=== PATIENT | female | born 1990 | race Caucasian/White ===

== ENCOUNTER 2020-02-16 14:32 | Emergency (ER) | payer OTHER, SELFPAY ==
[2020-02-16 14:49] VITALS: BP 146/106; PULSE 72; RESP 20; TEMP 36.9; O2SAT 98; BMI 54.1
--- NOTE | 2020-02-16 15:10 | HMH.EDUTC ---
[facility] [place] Disposition Clinical Impression: Exposure to COVID-19 virus, Bronchitis Disposition: Home, Self-Care Condition on Discharge: Good Instructions: Preventing the Spread of Coronavirus Discharge Instructions Additional Instructions: Drink plenty of fluids. The results of your COVID-19 test should be back within 24 to 48 hours. Take tylenol for pain or fever. Take the medications as directed. Follow up with your regular doctor. GO TO THE ER FOR ANY WORSENING SYMPTOMS Prescriptions: Azithromycin [Z-Timmy 250mg Tab*] 250 mg PO UD DOSE PK #6 tab Transmission Status: Received by [facility] Referrals: Leonidas Clark MD [Primary Care Provider] - Forms: Work/School Release Time of Disposition: 15:15 Medical Decision Making - Medical Records Medical records reviewed: No: I reviewed the patient's medical records. - Conner Inquiry Pt receiving controlled substance: No Vital Signs: 02/16/20 14:49 02/16/20 15:17 Temperature 98.5 F 98.5 F Temperature Source Oral Pulse Rate 72 Pulse Rate [Left Brachial] 72 Respiratory Rate 20 20 Blood Pressure 146/106 H Blood Pressure [Left Arm] 146/106 H Blood Pressure Mean [Left Arm] 119 Blood Pressure Source [Left Arm] Automatic Cuff Blood Pressure Position [Left Arm] Sitting 02 Sat by Pulse Oximetry 98 Oxygen Delivery Method Room Air Orders (Tests/Meds): ORDERS Category Date Time Status SARS-CoV-2, LY Stat Lab 02/16/20 15:16 Received [facility] [place] HPI - General Stated complaint: wants covid test Time Seen by Provider: 02/16/20 15:10 Mode of Arrival: Ambulatory Source of Information: Patient Limitations: No Limitations Description of Symptoms (Recalled from Triage Doc. by RN): PATIENT C/O DRY COUGH AND FEELING VERY TIRED SINCE YESTERDAY. HER MOTHER TESTED POSITIVE FOR COVID TODAY. PATIENT HAS BEEN IN CLOSE (WITHIN TOUCHING DISTANCE) CONTACT WITH HER MOTHER ON A DAILY BASIS. PATIENT DENIES FEVER AT THIS TIME HEENT Symptoms (Recalled from RN notes): No Resp Symptoms (Recalled from RN notes): Yes Skin Symptoms (Recalled from RN notes): No MS Symptoms (Recalled from RN notes): No Functional Status (Recalled from RN notes): WNL - History of Present Illness Provider Complaint: She states that her mother was diagnosed with COVID-19 on Demar. She has been around her mother frequently. Over the past 2 days she has been having a dry cough. She denies any fever or chilling or sore throat. She denies any GI symptoms. She does not have a history of asthma or diabetes. - Related Data Home Medications Medication Instructions Recorded Confirmed Escitalopram Oxalate [Lexapro] 20 mg PO DAILY 02/16/20 02/16/20 Previous Rx's Medication Instructions Recorded Azithromycin [Z-Timmy 250mg Tab*] 250 mg PO UD DOSE PK #6 tab 02/16/20 Allergies Allergy/AdvReac Type Severity Reaction Status Date / Time No Known Allergies Allergy Verified 06/04/18 14:49 - Worker's Comp Is this a Worker's Comp case?: No [facility] History - Hepatitis A Screen Drug use history?: No High risk sexual behaviors?: No History of sexually transmitted infection?: No Currently employed?: No Childcare worker?: No Do you have indoor plumbing?: Yes Do you have electricity?: Yes Attestation statement:: This patient has been screened for Hepatitis A risk factors. I have reviewed the patient's past medical history: Yes Medical History: Denies:: Anxiety, Cancer, Depression, Diabetes Mellitus Type 1, Diabetes Mellitus Type 2, Hyperlipidemia, Hypertension Laterality Cases: Bilateral: Tonsillectomy Other Surgeries: Yes: Cholecystectomy Amputation: No Fractures: No - Social History Smoking Status: Never smoker Alcohol Intake: never Substance Use Type: denies use Occupational Status: other - Psychiatric History Pschychiatric History:: Denies:: Anxiety, Depression Family Hx:: Cancer, Diabetes, Heart Attack, Hypertension, Hyperlipidemia ROS Obtained: Yes Al
[2020-02-16 15:17] VITALS: BP 146/106; PULSE 72; RESP 20; TEMP 36.9; O2SAT 98
[2020-02-18 13:31] LABS: Covid-19 Nasal PCR Sendout Lex Not Detected
== END 2020-02-16 15:20 | disposition home or self-care (01) ==
PROVIDERS: Emergency Provider Nurse Practitioner Family; PCP Internal Medicine Adolescent Medicine
DX: Z20.828 Contact with and (suspected) exposure to other viral communicable diseases (principal); J20.9 Acute bronchitis, unspecified
CPT/HCPCS: 99201; U0004

== ENCOUNTER → 2020-12-10 15:21 | Outpatient (CLI) | payer OTHER, SELFPAY ==
[2020-12-10 15:53] LABS: Basophils % 0.4 % (0.1-2.0); Eosinophils % 0.3 % (0.1-12.0); Hematocrit 41.1 % (37.0-47.0); Hemoglobin 13.3 g/dL (12.2-16.2); Lymphocytes # 2.1 K/mm3 (0.7-4.5); Lymphocytes % 24.1 % (10-50); Mean Corpuscular HGB Conc 32.2 g/dL (31.8-35.4); Mean Corpuscular Hemoglobin 26.8 pg (27.0-31.2); Mean Corpuscular Volume 83.1 fl (81-99); Mean Platelet Volume 8.2 fl (7.4-10.4); Monocytes # 0.4 K/mm3 (0.1-1.0); Monocytes % 4.1 % (1.7-9.3); Neutrophils # 6.3 K/mm3 (1.8-7.8); Platelet Count 294 K/mm3 (142-424); Red Blood Count 4.95 M/mm3 (4.20-5.40); Red Cell Distribution Width 13.7 % (11.5-17.5); White Blood Count 8.8 K/mm3 (4.8-10.8)
[2020-12-10 16:06] LABS: HCG Qualitative, Serum Negative (Negative)
[2020-12-10 16:09] LABS: Chloride 102 mmol/L (98-107); Potassium 3.7 mmoL/L (3.5-5.1); Sodium 141 mmol/L (136-145)
[2020-12-10 16:12] LABS: Anion Gap 13.7 mEq/L (5-15); Blood Urea Nitrogen 13 mg/dl (7-17); Calcium 9.5 mg/dl (8.4-10.2); Carbon Dioxide 29 mmol/L (22.0-30.0); Estimated Glomerular Filt Rate 98 ml/min (>60); GFR (African American) 119 ML/MIN (>60); Glucose 112 mg/dl (74-100)
[2020-12-10 17:06] LABS: Coronavirus 19 IgG Antibody Negative (Negative); Coronavirus 19 IgM Antibody Negative (Negative)
== END ==
PROVIDERS: Visit Provider Nurse Practitioner Obstetrics & Gynecology
DX: Z01.818 Encounter for other preprocedural examination (principal); Z11.52 Encounter for screening for COVID-19; N83.209 Unspecified ovarian cyst, unspecified side; Z30.09 Encounter for other general counseling and advice on contraception
CPT/HCPCS: 36415; 80048; 84703; 85025; 86328

== ENCOUNTER 2020-12-13 06:07 | Day surgery (SDC) | payer OTHER, SELFPAY ==
[2020-12-08 13:24] VITALS: BMI 52.2
[2020-12-13] VITALS (12 sets, daily range): BP systolic 121–151; BP diastolic 73–90; PULSE 57–83; RESP 12–18; TEMP 36.3–38; O2SAT 94–98
--- NOTE | 2020-12-13 06:56 | P.PN_ITS ---
[facility] Anesthesia Checklist - Structural Data Admitted From: Home Planned Operative Procedure/s: lap bso Consent for Planned Operative Procedure(s) Verified: Yes - Additional verifications Anesthesia Reactions: No Hx Blood Transfusions: No Blood Transfusion Reaction: No - Airway Assessment C-Spine Mobility Assessed: Yes TMJ Mobility Assessed: Yes Dentition: Good Dentition - Neurological Assessment Level of Consciousness: Awake, Alert, Appropriate - Anesthesia Plan Anesthesia Risk discussed: Yes Anesthesia Plan: Verified ASA Class: III Anesthesia Type: General [facility] History I have reviewed the patient's past medical history: Yes Medical History: Denies:: Anxiety, Cancer, Depression, Diabetes Mellitus Type 1, Diabetes Mellitus Type 2, Hyperlipidemia, Hypertension, Internal Pacemaker, MRSA, Seizures *Have you ever received a pneumonia vaccine?: No *Have you received a flu vaccine this season?: No Other Medical History: Denies: Blood Transfusion Reaction Anesthesia experience/problems:: none Laterality Cases: Bilateral: Tonsillectomy Other Surgeries: Yes: Cholecystectomy. No: Pacemaker Amputation: No Fractures: No - *Social History Last grade of school completed: Some college Smoking Status: Never smoker Alcohol Intake: never Substance Use Type: denies use *Occupational Status:: other Housing: house Household Members: spouse *Travel in the last 8 weeks: None - Psychiatric History Pschychiatric History:: Denies:: Anxiety, Depression Family Hx:: Cancer, Diabetes, Heart Attack, Hypertension, Hyperlipidemia
--- NOTE | 2020-12-13 08:21 | HMH.ANESI ---
[facility] Anesthesia Record Part I Intake, IV Amount: 1,000 Estimated blood loss (mL): 0 Urine output (mL): 0 Blood Pressure: 140/90 SaO2: 96 Pulse Rate: 79 Respiratory Rate: 12 Temperature: 97.9 F Patient is:: Awake, Stable Stable to PACU at:: 08:15
--- NOTE | 2020-12-13 08:43 | HMH.OPNOTE ---
Date of procedure: 12/13/20 Pre-op Diagnosis:: Desire for sterilization Post-op Diagnosis:: Desire for sterilization Procedure performed:: Laparoscopic bilateral salpingectomy Surgeon:: Nik Boyer MD BANK CREDIT CARD COLLECTION CLERK:: Frank Farnsworth Anesthesia: GETA Estimated blood loss (mL): 25 Clinical Note:: She is a 30-year-old lady who expressed desire for sterilization. The risks and benefits as well as irreversibility of bilateral salpingectomy were discussed with the patient prior to surgery. Operative findings:: She had a normal-appearing anteverted uterus. The tubes and ovaries appeared normal. The pelvis appeared normal. The upper abdomen appeared normal. Operative note:: She was taken to the operating room where general anesthesia was found be adequate. She was prepped and draped in normal sterile fashion in the semilithotomy position. A weighted speculum was placed in the vagina and the anterior lip of the cervix was grasped with a tenaculum. I then inserted a Leesa uterine manipulator into the cervical os. The balloon was then insufflated. I changed gloves and injected 10 cc of 0.5% ropivacaine around her umbilicus and made a small incision within the umbilicus. I inserted a Veress needle into the abdominal cavity. The peritoneal cavity was then insufflated with carbon dioxide gas to a pressure of 20 mmHg. I then inserted a 5 millimeter trocar under direct vision. I injected through and through the pubic hairline, made a small incision here and inserted an 8 mm trocar under direct vision. I identified the inferior epigastric artery on the left side, went lateral to these and injected through and through. I then placed a 5 mm trocar here under direct vision. The pelvis and upper abdomen were then inspected and the findings were as previously dictated. I grasped the right tube at the cornua and using harmonic scalpel on coagulation mode I cut through the tube. I then grasped the distal tube and using harmonic scalpel cut along the mesosalpinx. The tube was removed through 8 mm trocar site. This was similarly performed on the patient's left side. I then injected 30 cc of 0.5% ropivacaine into the pelvis. After assuring hemostasis the gas was let out of the abdomen and hemostasis was once again assured. The abdomen was then reinsufflated. The secondary trochars were removed under direct vision. The gas was let out her abdomen. The primary trocar was then removed. The 8 mm trocar site was closed deeply with 2-0 Vicryl suture followed by subcuticular 4-0 Monocryl suture. The 5 mm trocar sites were closed with subcuticular 4-0 Monocryl. Sterile dressings were applied. The patient tolerated the procedure well and was taken to the recovery room in excellent condition. All sponge instrument and needle counts were correct. The estimated blood loss was less than 25 cc. Condition: stable Disposition: PACU Specimens:: Bilateral fallopian tubes Complications:: None
--- NOTE | 2020-12-14 06:57 | HMH.ANESII ---
[facility] Anesthesia Record Part II Discharge Time: 08:45 Destination: Surgical Day Care (OP Surgery) PACU nurse assessment reviewed?: Yes Patient Condition:: Good Anesthesia Complications:: None Swallowing reflex intact?: Yes Cyanosis?: No Blood Pressure: 141/87 Pulse Rate: 71 Temperature: 98.7 F Mental Status: Alert & Oriented Pain level:: 0 Nausea and/or vomitting:: None Intake, IV Amount: 500
[2020-12-14 06:58] VITALS: BP 141/87; PULSE 71; TEMP 37.1
== END 2020-12-13 09:50 | disposition home or self-care (01) ==
LOC: OR 06:09
PROVIDERS: PCP Internal Medicine Adolescent Medicine; Visit Provider Nurse Practitioner Obstetrics & Gynecology
PROC: (CPT 58661; principal; 2020-12-13 07:30)
DX: Z30.2 Encounter for sterilization (principal); Z79.899 Other long term (current) drug therapy; F32.9 Major depressive disorder, single episode, unspecified
CPT/HCPCS: 58661; 96374

== ENCOUNTER 2021-03-11 17:58 | Emergency (ER) | payer OTHER, SELFPAY ==
[2021-03-11 17:59] VITALS: BP 175/80; PULSE 92; RESP 16; O2SAT 100; BMI 51.7
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
[2021-03-11 18:53] VITALS: BP 164/74; PULSE 90; RESP 16; TEMP 36.8; O2SAT 98
== END 2021-03-11 18:53 | disposition home or self-care (01) ==
PROVIDERS: Emergency Provider Nurse Practitioner; PCP Internal Medicine Adolescent Medicine
DX: S50.11XA Contusion of right forearm, initial encounter (principal); W20.8XXA Other cause of strike by thrown, projected or falling object, initial encounter; Y92.89 Other specified places as the place of occurrence of the external cause
CPT/HCPCS: 73090; 99202; G0463

== ENCOUNTER → 2021-03-23 17:13 | Outpatient (CLI) | payer OTHER, SELFPAY ==
[2021-03-25 22:37] LABS: Neisseria gonorrhoeae, NAA Negative (Negative)
== END ==
PROVIDERS: Visit Provider Nurse Practitioner Obstetrics & Gynecology
DX: R10.2 Pelvic and perineal pain (principal); Z72.51 High risk heterosexual behavior; R82.998 Other abnormal findings in urine
CPT/HCPCS: 87086; 87088; 87186; 87491; 87591

== ENCOUNTER 2021-04-26 20:47 | Emergency (ER) | payer OTHER, SELFPAY ==
[2021-04-26 21:47] VITALS: BP 138/92; PULSE 96; RESP 21; TEMP 37.1; O2SAT 99; BMI 52.7
[2021-04-26 21:50] VITALS: BP 138/92; PULSE 96; RESP 21; TEMP 37.1
[2021-04-26 21:57] LABS: UTC Strep Screen (Rapid) Negative (Negative)
--- NOTE | 2021-04-26 22:01 | HMH.EDUTC ---
[facility] [place] Impression: Pharyngitis Qualifiers: Pharyngitis/tonsillitis etiology: unspecified etiology Qualified Code(s): J02.9 - Acute pharyngitis, unspecified Disposition: Home, Self-Care Condition on Discharge: Good Instructions: Sore Throat, DI for Pharyngitis/Tonsillopharyngitis -- Adult, DI for COVID-19 (Suspected or Confirmed ), Preventing the Spread of Coronavirus Discharge Instructions Additional Instructions: Drink plenty of fluids. Take tylenol or ibuprofen for pain or fever. Take the medications as directed. Follow up with your regular doctor. GO TO THE ER FOR ANY WORSENING SYMPTOMS Quarantine until you know the results of your covid-19 test. If it is positive, the health department should call you and give you further instructions about your length of Quarantine and other things. Notify your school or workplace of your results and follow their instructions regarding return to work/school. Prescriptions: Brompheniramine/Pseudoephed/Dm [Bromfed Dm Cough Syrup] 5 ml PO Q6HP PRN #240 ml PRN Reason: Cough Transmission Status: Received by [facility] predniSONE [Deltasone 10mg tablet] 10 mg PO BID 3 Days #6 tab Transmission Status: Received by [facility] Azithromycin [Z-Timmy 250mg Tab*] 250 mg PO UD DOSE PK #6 tab Transmission Status: Received by [facility] Referrals: Leonidas Clark MD [Primary Care Provider] - Forms: Work/School Release Time of Disposition: 22:12 Medical Decision Making - Medical Records Medical records reviewed: No: I reviewed the patient's medical records. - Conner Inquiry Pt receiving controlled substance: No Vital Signs: 04/26/21 21:47 04/26/21 21:50 Temperature 98.7 F 98.7 F Temperature Source Oral Pulse Rate 96 H Pulse Rate [Left] 96 H Respiratory Rate 21 21 Blood Pressure 138/92 H Blood Pressure [Right Arm] 138/92 H Blood Pressure Mean [Right Arm] 107 02 Sat by Pulse Oximetry 99 Oxygen Delivery Method Room Air - Lab Data Lab results reviewed: Yes: I reviewed the patient's lab results. Lab Results 04/26/21 21:50: Strep Scn Rapid Clinic Negative Orders (Tests/Meds): ORDERS Category Date Time Status Covid-19 Nasal PCR ([facility]) Routine Lab 04/26/21 21:45 Received Strep Screen Confirmation Stat Micro 04/26/21 21:50 Received [facility] UTC HPI - General Stated complaint: SORE THROAT Time Seen by Provider: 04/26/21 22:01 Mode of Arrival: Ambulatory Source of Information: Patient Limitations: No Limitations Description of Symptoms (Recalled from Triage Doc. by RN): pt c/o a sore throat x3 days. HEENT Symptoms (Recalled from RN notes): Yes (sore throat) Resp Symptoms (Recalled from RN notes): No Skin Symptoms (Recalled from RN notes): No MS Symptoms (Recalled from RN notes): No Functional Status (Recalled from RN notes): na - History of Present Illness Provider Complaint: She states that she has had a sore throat for the past 2 days. She states that it has been very sore. She has a history of getting strep throat. - Related Data Home Medications Medication Instructions Recorded Confirmed levonorgestrel 20 mcg/24 hours (6 1 insert INTRAUTERI each 03/23/21 03/23/21 yrs) 52 mg intrauterine device propranolol 40 mg tablet 40 mg PO tab 03/23/21 03/23/21 vortioxetine 20 mg tablet 20 mg PO tab 03/23/21 03/23/21 Previous Rx's Medication Instructions Recorded metronidazole 500 mg tablet 500 mg PO BID 7 Days #14 tab 03/23/21 Azithromycin [Z-Timmy 250mg Tab*] 250 mg PO UD DOSE PK #6 tab 04/26/21 Brompheniramine/Pseudoephed/Dm 5 ml PO Q6HP PRN #240 ml 04/26/21 [Bromfed Dm Cough Syrup] predniSONE [Deltasone 10mg tablet] 10 mg PO BID 3 Days #6 tab 04/26/21 Allergies Allergy/AdvReac Type Severity Reaction Status Date / Time No Known Allergies Allergy Verified 03/23/21 11:33 - Worker's Comp Is this a Worker's Comp case?: No [facility] History - Hepatitis A Screen Drug use his
== END 2021-04-26 22:17 | disposition home or self-care (01) ==
PROVIDERS: Emergency Provider Nurse Practitioner Family; PCP Internal Medicine Adolescent Medicine
DX: J02.9 Acute pharyngitis, unspecified (principal); F41.8 Other specified anxiety disorders
CPT/HCPCS: 87880; 99203; G0463; U0003

== ENCOUNTER 2021-07-05 07:56 | Outpatient (CLI) | payer OTHER, SELFPAY ==
[2021-07-05] VITALS (7 sets, daily range): BP systolic 151–168; BP diastolic 90–108; PULSE 70–84; RESP 16–18; TEMP 36.7; O2SAT 97–99
== END 2021-07-05 11:47 ==
PROVIDERS: PCP Internal Medicine Adolescent Medicine; Visit Provider Nurse Practitioner Family
DX: U07.1 COVID-19 (principal); Z23 Encounter for immunization
CPT/HCPCS: 96365

== ENCOUNTER → 2023-03-07 07:42 | Outpatient (CLI) | payer OTHER, SELFPAY | PROVIDERS: PCP Internal Medicine Adolescent Medicine; Visit Provider Nurse Practitioner Family | DX: Z01.818 Encounter for other preprocedural examination (principal); E66.9 Obesity, unspecified; Z68.43 Body mass index [BMI] 50.0-59.9, adult; R06.09 Other forms of dyspnea | CPT/HCPCS: 94060; 94726; 94729 ==

== ENCOUNTER → 2023-03-14 14:27 | Outpatient (CLI) | payer OTHER, SELFPAY ==
--- NOTE | 2023-03-14 14:47 | CA_ITS ---
APPROVED REPORT EXAM: Comprehensive 2D, Doppler, and color-flow Echocardiogram Brake Adjuster: Delma Salas CRT Ht: 5 ft 5 in Wt: 325lbs BSA: 2.43 BP: 156/96 mmHg Indications: Obesity, Hypertension/HDD, Pre-Op bariatric 2D Dimensions LVOT 1.83 cm (M/F) 1.5-2.5 LA Volume 38.00 mL LA Volume Index 15.64 mL/m2 (M/F) 16-34 M-Mode Dimensions RVDd 3.15 cm (0.9-2.6) LA Diam 3.85 cm (1.9-4.0) LVDd 5.05 cm (3.5-5.7) Ao Diam 3.53 cm (2.0-3.7) LVDs 3.57 cm (3.5-5.7) IVSd 1.18 cm (0.6-1.1) PWd 0.84 cm (0.6-1.1) EF (Teich) 56.00% FS 29.30% EDV (Teich) 121.00 mL TAPSE 2.44 (<1.7) ESV (Teich) 53.30 mL LV Diastology E Decel Time 200.00 (160-240 msec) E/A Ratio 1.2 MED E' 8.40 (< 7 cm/sec) MED A' 6.90 cm/s E'/MED E' Ratio 12.54 (>14) LAT E' 12.50 (<10 cm/sec) LAT A' 9.60 cm/s E/LAT E' Ratio 8.42 (>14) Aortic Valve AO Peak GR. 12.00 mmHg Mitral Valve MV E Max Akshat. 105.00 (40-130 cm/s) MV A Velocity 85.00 (40-130 cm/s) E/A Ratio 1.23 MV Decel. Time 200.00 (160-240 ms) MV PHT 59.00 ms Pulmonary Valve PV Peak Velocity 98.00 (50-150 cm/s) Tricuspid Valve TR P. Velocity 122.00 cm/s RAP Estimate 10.00 mmHg RVSP 16.00 mmHg Left Ventricle The left ventricle is normal size. The left ventricular systolic function is normal. The left ventricular ejection fraction is within the normal range. There is normal left ventricular wall thickness. There is normal LV segmental wall motion. The left ventricular diastolic function is normal. LVEF is 65%. Right Ventricle The right ventricle is normal size. The right ventricular systolic function is normal. Atria The left atrium size is normal. The right atrium size is normal. There is no Doppler evidence of interatrial shunt. Aortic Valve The aortic valve is normal in structure. There is no aortic valvular stenosis. No aortic regurgitation is present. Mitral Valve The mitral valve is normal in structure. There is trace mitral valve regurgitation noted. Tricuspid Valve The tricuspid valve leaflets are thin and pliable. Trace tricuspid regurgitation. RVSP is normal. Pulmonic Valve The pulmonary valve is normal in structure. Trace pulmonic regurgitation. Great Vessels The aortic root is normal in size. Pericardium There is no pericardial effusion. Other Information Study Quality: Adequate Conclusion Normal biventricular systolic function. No significant valvular disease. Electronically signed by : Tricia Hall, 03/14/2023 17:17:23
[2023-03-16 11:46] LABS: HSV 2 IgG, Type Spec <0.91 index (0.00-0.90)
== END ==
PROVIDERS: Nurse Practitioner Obstetrics & Gynecology; PCP Internal Medicine Adolescent Medicine; Visit Provider Nurse Practitioner
DX: N89.8 Other specified noninflammatory disorders of vagina; I10 Essential (primary) hypertension; Z01.818 Encounter for other preprocedural examination
CPT/HCPCS: 36415; 86695; 86790; 93306

== ENCOUNTER 2023-03-17 11:02 | Emergency (ER) | payer OTHER, SELFPAY ==
[2023-03-17 11:02] VITALS: BP 154/90; PULSE 67; RESP 18; TEMP 36.7; O2SAT 100
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
--- NOTE | 2023-03-17 11:21 | PC.NURSE ---
pt refused c collar
[2023-03-17 11:28] LABS: Basophils # 0.1 K/mm3 (0-0.2); Basophils % 0.5 % (0.1-2.0); Eosinophils # 0.1 K/mm3 (0.0-0.4); Eosinophils % 0.6 % (0.1-12.0); Hematocrit 40.5 % (37.0-47.0); Hemoglobin 12.9 g/dL (12.2-16.2); Lymphocytes # 1.9 K/mm3 (0.7-4.5); Lymphocytes % 16.3 % (10-50); Mean Corpuscular HGB Conc 31.9 g/dL (31.8-35.4); Mean Corpuscular Hemoglobin 27.2 pg (27.0-31.2); Mean Corpuscular Volume 85.4 fl (81-99); Mean Platelet Volume 8.5 fl (7.4-10.4); Monocytes # 0.4 K/mm3 (0.1-1.0); Monocytes % 3.9 % (1.7-9.3); Neutrophils % 78.7 % (37.0-80.0); Platelet Count 286 K/mm3 (142-424); Red Blood Count 4.74 M/mm3 (4.20-5.40); Red Cell Distribution Width 14.2 % (11.5-17.5); White Blood Count 11.4 K/mm3 (4.8-10.8)
[2023-03-17 11:36] LABS: Chloride 106 mmol/L (98-107); Sodium 139 mmol/L (136-145)
[2023-03-17 11:37] LABS: Potassium 3.7 mmoL/L (3.5-5.1)
[2023-03-17 11:38] LABS: HCG Qualitative, Serum Negative (Negative)
[2023-03-17 11:39] LABS: Alanine Aminotransferase 27 U/L (12-78); Albumin Level 3.8 g/dl (3.5-5.0); Albumin/Globulin Ratio 1.2 (1.1-1.8); Alkaline Phosphatase 84 U/L (38-126); Anion Gap 9.7 mEq/L (5-15); Aspartate Amino Transferase 26 U/L (14-36); Bilirubin,Total 0.6 mg/dl (0.2-1.3); Blood Urea Nitrogen 12 mg/dl (7-17); Carbon Dioxide 27 mmol/L (22.0-30.0); Estimated Glomerular Filt Rate 97 ml/min (>60); GFR (African American) 117 ML/MIN (>60); Globulin 3.3 g/dL (1.3-3.2); Total Protein,Serum 7.1 g/dl (6.3-8.2)
[2023-03-17 11:40] LABS: Calcium 8.9 mg/dl (8.4-10.2); Glucose 95 mg/dl (74-100); Lipase 32 U/L (23-300)
--- NOTE | 2023-03-17 11:50 | PC.NURSE ---
PT TO CT
--- NOTE | 2023-03-17 11:51 | PC.NURSE ---
iv d/c per rad request for ct scans
--- NOTE | 2023-03-17 12:22 | PC.NURSE ---
PT RETURNED FROM CT
[2023-03-17 12:40] LABS: Appearance,Urine CLEAR (Clear); Bilirubin,Urine Negative (Negative); Blood, Urine TRACE-I (Negative); Color,Urine YELLOW (Yellow); Glucose,Urine (UA) Negative (Negative); Ketones,Urine Negative (Negative); Leukocyte Esterase,Urine Negative (Negative); Microscopic, Urine URINE MICROSCOPIC (MICROSCOPIC); Nitrate,Urine Negative (Negative); Protein,Urine Negative (Negative)
[2023-03-17 12:52] LABS: Bacteria,Urine Trace /lpf; RBC,Urine Occasional #/hpf (0-3); Squamous Epithelial Cell,Urine Occasional #/hpf (0-5); WBC,Urine Occasional #/hpf (0-3)
--- NOTE | 2023-03-17 12:58 | PC.NURSE ---
patient given ice pace
[2023-03-17 13:00] VITALS: BMI 54.1
--- NOTE | 2023-03-17 13:05 | PC.NURSE ---
pt up to restroom
[2023-03-17 13:15] VITALS: BP 138/89; PULSE 74; RESP 16; TEMP 36.7; O2SAT 100
== END 2023-03-17 13:15 | disposition home or self-care (01) ==
PROVIDERS: Emergency Provider Student in an Organized Health Care Education/Training Program
DX: S00.33XA Contusion of nose, initial encounter (principal); S83.91XA Sprain of unspecified site of right knee, initial encounter; S30.1XXA Contusion of abdominal wall, initial encounter; I10 Essential (primary) hypertension; V28.09XA Other motorcycle driver injured in noncollision transport accident in nontraffic accident, initial encounter
CPT/HCPCS: 70450; 70486; 70496; 70498; 71275; 72125; 72128; 72131; 73560; 74174; 80053; 81001; 83690; 84703; 85025; 86850; 96361; 96374; 99285; J0131; Q9967

== ENCOUNTER → 2023-04-24 12:04 | Outpatient (CLI) | payer OTHER, SELFPAY ==
[2023-04-24 12:28] LABS: Basophils % 0.5 % (0.1-2.0); Eosinophils # 0.1 K/mm3 (0.0-0.4); Eosinophils % 1.8 % (0.1-12.0); Hematocrit 39.8 % (37.0-47.0); Hemoglobin 13.4 g/dL (12.2-16.2); Lymphocytes # 2.1 K/mm3 (0.7-4.5); Lymphocytes % 32.3 % (10-50); Mean Corpuscular HGB Conc 33.5 g/dL (31.8-35.4); Mean Corpuscular Hemoglobin 27.9 pg (27.0-31.2); Mean Platelet Volume 8.2 fl (7.4-10.4); Monocytes # 0.3 K/mm3 (0.1-1.0); Neutrophils % 60.6 % (37.0-80.0); Platelet Count 284 K/mm3 (142-424); Red Cell Distribution Width 13.6 % (11.5-17.5); White Blood Count 6.6 K/mm3 (4.8-10.8)
[2023-04-24 12:48] LABS: Hemoglobin A1C 5.1 % (4.0-6.0)
[2023-04-24 12:53] LABS: Alanine Aminotransferase 23 U/L (12-78); Albumin Level 3.7 g/dl (3.5-5.0); Albumin/Globulin Ratio 1.2 (1.1-1.8); Alkaline Phosphatase 85 U/L (38-126); Anion Gap 10.8 mEq/L (5-15); Aspartate Amino Transferase 27 U/L (14-36); Bilirubin,Total 0.5 mg/dl (0.2-1.3); Blood Urea Nitrogen 13 mg/dl (7-17); Calcium 8.7 mg/dl (8.4-10.2); Carbon Dioxide 26 mmol/L (22.0-30.0); Chloride 104 mmol/L (98-107); Chol/HDL Ratio 4.9 (1-3.5); Cholesterol 182 mg/dl (140-200); Estimated Glomerular Filt Rate 97 ml/min (>60); GFR (African American) 117 ML/MIN (>60); Glucose 90 mg/dl (74-100); HDL Cholesterol 37 mg/dl (40-60); Potassium 3.8 mmoL/L (3.5-5.1); Sodium 137 mmol/L (136-145); Total Protein,Serum 6.7 g/dl (6.3-8.2); Triglycerides 73 mg/dl (30-150); VLDL Cholesterol 15 mg/dL (0-40)
[2023-04-24 13:05] LABS: Direct LDL Cholesterol 114.64 mg/dL (100-129)
[2023-04-24 13:19] LABS: Triiodothryronine (T3) Uptake 32 % (23.5-40.5)
[2023-04-24 13:20] LABS: Free Thyroxine Index 4.4 ug/dL (5.93-13.13); T4 (Thyroxine) 13.9 ug/dl (5.53-11.0)
[2023-04-24 13:33] LABS: Thyroid Stimulating Hormone 1.84 uIU/mL (0.465-4.68)
== END ==
PROVIDERS: PCP Internal Medicine Adolescent Medicine; Visit Provider Internal Medicine Adolescent Medicine
DX: Z00.00 Encounter for general adult medical examination without abnormal findings (principal); Z79.899 Other long term (current) drug therapy
CPT/HCPCS: 36415; 80053; 80061; 83036; 84436; 84443; 84479; 85025

== ENCOUNTER 2023-05-06 10:15 | Emergency (ER) | payer OTHER, SELFPAY ==
[2023-05-06 10:20] VITALS: BP 167/89; PULSE 88; RESP 18; TEMP 36.6; O2SAT 99; BMI 54.7
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
[2023-05-06] MEDS: TET/DIPHTH/PERT-ADULT 0.5ML SYRINGE 0.5 ML IM (10:41)
[2023-05-06 11:53] VITALS: BP 167/99; PULSE 88; RESP 18; TEMP 36.6; O2SAT 99
== END 2023-05-06 11:53 | disposition home or self-care (01) ==
PROVIDERS: Emergency Provider Nurse Practitioner; PCP Internal Medicine Adolescent Medicine
DX: S61.411A Laceration without foreign body of right hand, initial encounter (principal); I10 Essential (primary) hypertension; W54.8XXA Other contact with dog, initial encounter; Z23 Encounter for immunization
CPT/HCPCS: 12001; 73130; 90471; 90715; 96372; 99213; 99214; G0463

== ENCOUNTER 2023-05-18 11:01 | Emergency (ER) | payer OTHER, SELFPAY ==
[2023-05-18 11:30] VITALS: BP 151/83; PULSE 62; RESP 21; TEMP 36.8; O2SAT 99; BMI 52.4
[2023-05-18 11:38] VITALS: BP 151/83; PULSE 62; RESP 18; TEMP 36.8; O2SAT 99
== END 2023-05-18 11:40 | disposition home or self-care (01) ==
LOC: UTC 11:03
PROVIDERS: Emergency Provider Nurse Practitioner; PCP Internal Medicine Adolescent Medicine
DX: Z48.02 Encounter for removal of sutures (principal); S61.411A Laceration without foreign body of right hand, initial encounter

== ENCOUNTER 2023-08-14 16:11 | Emergency (ER) | payer OTHER, SELFPAY ==
[2023-08-14 16:13] VITALS: BP 170/100; PULSE 79; RESP 17; TEMP 36.7; O2SAT 98; BMI 104.1
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
[2023-08-14 17:05] VITALS: BP 153/82; PULSE 77; O2SAT 100
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
[2023-08-14 18:08] VITALS: BP 148/83; PULSE 55; RESP 16; TEMP 36.7; O2SAT 100
== END 2023-08-14 18:09 | disposition home or self-care (01) ==
PROVIDERS: Emergency Provider Emergency Medicine; PCP Internal Medicine Adolescent Medicine
DX: S06.0X0A Concussion without loss of consciousness, initial encounter (principal); S20.212A Contusion of left front wall of thorax, initial encounter; S60.021A Contusion of right index finger without damage to nail, initial encounter; F17.200 Nicotine dependence, unspecified, uncomplicated; Y04.0XXA Assault by unarmed brawl or fight, initial encounter
CPT/HCPCS: 70450; 71250; 72125; 72128; 73000; 73030; 73060; 73130; 99285

== ENCOUNTER 2024-08-04 04:08 | Emergency (ER) | payer OTHER, SELFPAY ==
[2024-08-04 04:14] VITALS: BP 161/105; PULSE 77; RESP 20; TEMP 36.7; O2SAT 98; BMI 38.7
--- NOTE | 2024-08-04 04:17 | PC.NURSE ---
Skin pink warm and dry Resp full and easy Speech clear and appropriate. at bedside. No drainage noted from right ear
--- NOTE | 2024-08-04 04:35 | HMH.EDGENADL ---
Discharge Plan Disposition Patient Disposition: Home, Self-Care Condition: Good Prescriptions Prescriptions: New amoxicillin 875 mg tablet 875 mg PO BID Qty: 10 0RF No Action omeprazole 20 mg capsule,delayed release(DR/EC) 20 mg PO DAILY lisinopril 10 mg tablet See Rx Instructions .ROUTE .COMPLEX Qty: 90 3RF Dose Instruction: TAKE 1 TABLET BY MOUTH ONCE DAILY Rx Instructions: TAKE 1 TABLET BY MOUTH ONCE DAILY ondansetron 4 mg tablet,disintegrating 4 mg PO Q8H PRN (Reason: nausea and vomiting) 4 Days Qty: 12 0RF Referrals Follow up/Referrals: Leonidas Clark MD [Primary Care Provider] - See instructions Activity Restrictions/Add. Instructions Additional Instructions/Restrictions: You were evaluated in the ER and are appropriate for discharge at this time. Take Tylenol, ibuprofen if needed for pain, do not exceed the recommended dose on the bottle, drink a full glass of water and eat a small snack each time you take these medications to avoid side effects. Also take Zyrtec daily to help with congestion and drainage. If your symptoms do not improve or continue to worsen after 24 hours, then begin the prescribed amoxicillin. If you start the amoxicillin, take it as directed, do not skip doses, do not stop taking it early. Make an appointment with your primary care doctor for reevaluation in a few days, return to the ER with new, worsening, or otherwise concerning symptoms. Clinical Impressions Clinical Impression: Acute pain of right ear Print Language Print Language: Citizen Of [place] Discharge ED Provider: Judy Garcia Adult [facility] General Chief complaint: Ear Stated complaint: Right ear pain Time Seen by Provider: 08/04/24 04:35 Mode of Arrival: Wheelchair Source of Information: Patient Limitations: No Limitations Description of Symptoms (Recalled from ER Triage Doc. by RN): right ear pain started suddenly waking patient from her sleep History of Present Illness HPI narrative: 34-year-old female presents to the ER with right ear pain that has been going on for the last 4 hours. Patient reports for the last week she has had mild sore throat and congestion. Patient reports she woke up with a sudden pop of her right ear and has had persistent pain. She states she took a nasal decongestant a few hours ago without significant relief. She has not taken other medications for her symptoms. She states the pain radiates from her ear and into her face, she has no dizziness, numbness, tingling, weakness, or other associated symptoms. She has not had fever or chills. She has not had recent ear infection. No known drug allergies. Related Data Home Medications ?Medication ?Instructions ?Recorded ?Confirmed omeprazole 20 mg capsule,delayed 20 mg PO DAILY 12/27/23 12/27/23 release Previous Rx's ?Medication ?Instructions ?Recorded lisinopril 10 mg tablet See Rx Instructions .Route 08/02/23 .COMPLEX #90 tabs ondansetron 4 mg disintegrating 4 mg PO Q8H PRN nausea and 08/14/23 tablet vomiting 4 days #12 tabs amoxicillin 875 mg tablet 875 mg PO BID #10 tabs 08/04/24 Allergies Allergy/AdvReac Type Severity Reaction Status Date / Time No Known Allergies Allergy Verified 12/27/23 09:51 [facility] Disclaimer: The information contained in this section may have been updated after the patient was seen, as this information can be updated by other users. Medical History Hypertension Surgical History H/O tubal ligation History of tonsillectomy S/P cholecystectomy Family History Other No significant family history Social History (Updated 12/27/23 @ 09:56 by DAPHNEY Nowak) Smoking Status: Never smoker alcohol intake: never substance use type: denies use current occupational status: employed and other Travel in the last 8 weeks: None household members: spouse housing: house number of children: 1 current occupation: [employer] current occupational exposures/hazards: Yes caffeine: Yes Have you lived/traveled outside [place] in past 30 days?: No Contact w/someone who lives/traveled outside [place] past 30 days?: No Exposure to someone with infectious disease in past 14 days?: No Do you have a fever (greater than 100.4 F or 38 C)?: No Have you tested positive for COVID-19: No Exposed to someone with COVID-19 in past 14 days?: No Do you have a sore throat?: No Do you have a cough?: No Do you have any weakness?: No Do you have any diarrhea?: No Are you experiencing any unusual bleeding?: No Do you have any muscle aches/pain?: No Do you have any abdominal pain?: No Are you experiencing loss of taste or smell?: No Other Medical History Have you received the Flu Vaccine for this season: No Have you received the Pneumonia Vaccine: No ROS Obtained: Yes Systems reviewed as appropriate & no additional complaints except as documented Per HPI Physical Exam General General appearance: alert and in no apparent distress Head Head exam: atraumatic and normocephalic Eye Eye exam: Present PERRL and EOMI ENT ENT exam: Present mucous membranes moist and other (Right tympanic membrane erythematous, bulging, nonpurulent effusion present, left TM is not erythematous, there is fluid behind the TM on the left. No pain with manipulation of the auricle); Absent normal oropharynx (Posterior oropharynx mildly erythematous but no tonsillomegaly, no exudates) Expanded ENT Exam Mouth exam: Present other (No trismus, mild TMJ tenderness on the right) Neck Neck exam: Present normal inspection and full ROM; Absent lymphadenopathy Chest Chest inspection: Present symmetric chest wall rise Respiratory Respiratory exam: Absent respiratory distress or stridor Cardiovascular Cardiovascular exam: Present regular rate and normal rhythm Extremities Exam Extremities exam: Present full ROM Neurological Exam Neurological exam: Present alert, oriented X3, CN II-XII intact and normal gait; Absent motor sensory deficit Psychiatric Psychiatric exam: Present normal affect and normal mood Skin Skin exam: Present warm and dry Medical Decision Making Medical Records Screening: Per USPSTF and CDC recommendations, given the prevalence of disease in our region, it is our hospital?s policy to screen for HIV and viral Hepatitis for all patients aged 18 and over and those with ongoing risk factors. Conner Inquiry Pt receiving controlled substance: No Vital Signs: 08/04/24 04:14 08/04/24 04:55 Temperature 98.0 F 98.2 F Temperature Source Oral Oral Pulse Rate 74 Pulse Rate [Right Brachial] 77 Respiratory Rate 20 16 Blood Pressure 156/99 H Blood Pressure [Right Arm] 161/105 H Blood Pressure Mean [Right Arm] 123 Blood Pressure Source [Right Arm] Automatic Cuff Blood Pressure Position [Right Arm] Sitting 02 Sat by Pulse Oximetry 98 Oxygen Delivery Method Room Air Room Air Orders (Tests/Meds): ED MEDICATIONS Discontinued Medications Generic Name Dose Route Start Last Admin Trade Name Freq PRN Reason Stop Dose Admin Acetaminophen 1,000 mg 08/04/24 04:43 08/04/24 04:53 Acetaminophen 500mg Tab PO 08/04/24 04:44 1,000 mg ONCE ONE Administration Ibuprofen 600 mg 08/04/24 04:43 08/04/24 04:52 Ibuprofen 600 Mg Tablet PO 08/04/24 04:44 600 mg ONCE ONE Administration ORDERS Category Date Time Status HIV (1&2) Antibody Rapid Stat Lab 08/04/24 04:17 Ordered Hep C Ab with Reflex to RNA Stat Lab 08/04/24 04:17 Ordered Medical Decision Narrative: In summary, this 34-year-old female presents to the emergency department today with right ear pain. On initial evaluation patient is hemodynamically stable, afebrile, physical exam is overall reassuring, however patient does have erythema, bulging, nonpurulent effusion of the right TM. Differential diagnosis includes but is not limited to otitis media, I considered otitis externa, also considered simple effusion, TM perforation, foreign body. Exam is most consistent with effusion without infection, however the right TM is erythematous compared to the left. Patient does have mild TMJ tenderness, possible TMJ inflammation, also considered trigeminal neuralgia however the characteristics of patient's symptoms is not consistent with this. I do not believe labs or imaging are indicated at this time. Patient has no findings of mastoiditis or other dangerous pathology. No findings of strep. Patient received Tylenol, ibuprofen in the ER. I discussed watchful waiting with the patient since she does not have a purulent effusion, her exam is not completely convincing for bacterial otitis media. She is comfortable with the plan for watchful waiting, I prescribed amoxicillin for outpatient management if she ends up needing it. I recommended use of [id number] decongestant or antihistamine such as Zyrtec to help with congestion and management of effusion. Also recommended Tylenol and ibuprofen. Patient was given instructions on symptomatic management, follow up instructions, and return precautions for the emergency department. Patient indicated understanding and was discharged in stable condition. Critical Care Critical Care Time Critical Care Time: No
[2024-08-04] MEDS: IBUPROFEN 600 MG TABLET PO (04:52)
[2024-08-04] MEDS: ACETAMINOPHEN 500MG TAB 1000 MG PO (04:53)
[2024-08-04 04:55] VITALS: BP 156/99; PULSE 74; RESP 16; TEMP 36.8; O2SAT 100
== END 2024-08-04 05:01 | disposition home or self-care (01) ==
PROVIDERS: Emergency Provider Emergency Medicine; PCP Internal Medicine Adolescent Medicine
DX: H92.01 Otalgia, right ear (principal); J02.9 Acute pharyngitis, unspecified; R09.81 Nasal congestion
CPT/HCPCS: 99283